=== PATIENT | female | born 1995 | race Caucasian/White ===

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

== ENCOUNTER 2017-02-06 14:27 | Emergency (ER) | payer MEDICAID, OTHER ==
--- NOTE | 2017-02-06 15:28 | ER Document Report ---
ED Medical Screen (RME) - General Chief Complaint: Abdominal Pain Stated Complaint: ABDOMINAL PAIN Notes: 21-year-old female patient complaining of lower abdominal pain and low back pain with nausea and vomiting for 3 days. She also has vaginal discharge. She seen in urgent care yesterday and diagnosed with a UTI and yeast vaginitis. . She had similar symptoms on the ER visit in October of this year, told she had liver disease. The AST was 103, ALT 209. She was later told she may have PCOS and they wanted to put her on control pills but this did not happen. At that time her symptoms lasted several weeks. I have greeted and performed a rapid initial assessment of this patient. A comprehensive ED assessment and evaluation of the patient, analysis of test results and completion of the medical decision making process will be conducted by additional ED providers. TRAVEL OUTSIDE OF THE [place] IN LAST 30 DAYS: No - Related Data Allergies/Adverse Reactions: Penicillins Allergy (Verified 02/06/17 15:25) Past Medical History Renal/ Medical History: Denies: Hx Peritoneal Dialysis - Immunizations Hx Diphtheria, Pertussis, Tetanus Vaccination: Yes Physical Exam - Vital signs Vitals: Temp Pulse Resp BP Pulse Ox 98.1 F 97 H 20 141/86 H 97 02/06/17 14:34 02/06/17 14:34 02/06/17 14:34 02/06/17 14:34 02/06/17 14:34 Course - Vital Signs Vital signs: Temp Pulse Resp BP Pulse Ox 98.1 F 97 H 20 141/86 H 97 02/06/17 14:34 02/06/17 14:34 02/06/17 14:34 02/06/17 14:34 02/06/17 14:34
[2017-02-06 16:36] LABS: ABSOLUTE MONOCYTES (AUTO) 0.9 10^3/uL (0.1-1.4); ABSOLUTE NEUT (AUTO) 8.2 10^3/uL (1.7-8.2); BASOPHILS % (AUTO) 0.3 % (0-2); EOSINOPHILS % (AUTO) 0.4 % (0-6); HEMOGLOBIN 13.8 g/dL (12.0-15.5); HGB HCT DIFFERENCE 0.4; LYMPHOCYTES % (AUTO) 18.1 % (13-45); MEAN CORPUSCULAR HEMOGLOBIN 27.7 pg (27.0-33.4); MEAN CORPUSCULAR HGB CONC 33.7 g/dL (32.0-36.0); MEAN CORPUSCULAR VOLUME 82 fl (80-97); MONOCYTES % (AUTO) 7.8 % (3-13); RED BLOOD COUNT 4.99 10^6/uL (3.72-5.28); RED CELL DISTRIBUTION WIDTH 13.6 % (11.5-14.0); SEGMENTED NEUTROPHILS % (AUTO) 73.4 % (42-78); WHITE BLOOD COUNT 11.2 10^3/uL (4.0-10.5)
[2017-02-06 16:47] LABS: APPEARANCE,URINE CLEAR; BILIRUBIN,URINE NEGATIVE (NEGATIVE); CALCIUM OXALATE CRYSTALS,URINE MODERATE /HPF; GLUCOSE, URINE NEGATIVE (NEGATIVE); KETONES,URINE NEGATIVE (NEGATIVE); LEUKOCYTE ESTERASE,URINE NEGATIVE (NEGATIVE); NITRITE,URINE POSITIVE (NEGATIVE); PROTEIN,URINE NEGATIVE (NEGATIVE); URINE SPECIFIC GRAVITY 1.023
[2017-02-06] MEDS ORDERED: IBUPROFEN 800 MG TABLET PO ONE (18:24)
--- NOTE | 2017-02-06 18:27 | ER Document Report ---
ED GI/ - General Chief Complaint: Abdominal Pain Stated Complaint: ABDOMINAL PAIN Mode of Arrival: Ambulatory Information source: Patient Notes: This is a 21-year-old female presents to the ER with three-day history of lower abdominal pain. She also has had nausea and intermittent vomiting but normal bowel movements. She states that she was seen at urgent care yesterday and diagnosed with a yeast infection and a UTI. She was prescribed Diflucan which she has not taken because she states it won't help. She was also prescribed an antibiotic which she has been taking. No fevers, chills. She does endorse white vaginal discharge for the past 2-3 days. No dysuria. TRAVEL OUTSIDE OF THE [place] IN LAST 30 DAYS: No - Related Data Allergies/Adverse Reactions: Penicillins Allergy (Verified 02/06/17 15:25) Past Medical History - General Information source: Patient - Social History Smoking Status: Current Every Day Smoker Frequency of alcohol use: Social Drug Abuse: None Family History: Reviewed & Not Pertinent Patient has suicidal ideation: No Patient has homicidal ideation: No Renal/ Medical History: Reports: Other - PCOS. Denies: Hx Peritoneal Dialysis - Immunizations Hx Diphtheria, Pertussis, Tetanus Vaccination: Yes Review of Systems - Review of Systems Constitutional: No symptoms reported. denies: Chills, Fever EENT: No symptoms reported Cardiovascular: No symptoms reported. denies: Chest pain Respiratory: No symptoms reported Gastrointestinal: See HPI, Abdominal pain, Vomiting. denies: Diarrhea, Constipation Genitourinary: See HPI. denies: Burning, Dysuria Female Genitourinary: See HPI, Last menstrual period - 01/14/17, Vaginal discharge Musculoskeletal: No symptoms reported Skin: No symptoms reported Hematologic/Lymphatic: No symptoms reported Neurological/Psychological: No symptoms reported Physical Exam - Vital signs Vitals: Temp Pulse Resp BP Pulse Ox 98.1 F 97 H 20 141/86 H 97 02/06/17 14:34 02/06/17 14:34 02/06/17 14:34 02/06/17 14:34 02/06/17 14:34 - Notes Notes: PHYSICAL EXAMINATION: GENERAL: Well-appearing, well-nourished and in no acute distress. HEAD: Atraumatic, normocephalic. EYES: Pupils equal round and reactive to light, extraocular movements intact, sclera anicteric, conjunctiva are normal. ENT: nares patent, oropharynx clear without exudates. Moist mucous membranes. NECK: Normal range of motion, supple without lymphadenopathy LUNGS: Breath sounds clear to auscultation bilaterally and equal. No wheezes rales or rhonchi. HEART: Regular rate and rhythm without murmurs ABDOMEN: Soft, diffuse mild lower abdominal TTP without guarding/rebound/ rigidity, normoactive bowel sounds. No masses appreciated. : No external lesions noted. Yellow discharge in vault. Mild CMT. No adnexal masses or focal TTP. EXTREMITIES: Normal range of motion, no pitting or edema. No cyanosis. NEUROLOGICAL: Cranial nerves grossly intact. No gross focal motor or sensory deficits noted PSYCH: Normal mood, normal affect. SKIN: Warm, Dry, normal turgor, no rashes or lesions noted. Course - Vital Signs Vital signs: Temp Pulse Resp BP Pulse Ox 98.5 F 79 16 136/77 H 98 02/06/17 20:40 02/06/17 20:40 02/06/17 20:40 02/06/17 20:40 02/06/17 20:40 - Laboratory Result Diagrams: 02/06/17 16:10 02/06/17 19:05 Laboratory results interpreted by me: 02/06/17 02/06/17 02/06/17 15:34 16:10 19:05 WBC 11.2 H Glucose 195 H AST 58 H ALT 128 H Urine Nitrite POSITIVE H Urine Urobilinogen 4.0 H Chlamydia DNA (PCR) 02/06/17 19:40 WBC Glucose AST ALT Urine Nitrite Urine Urobilinogen Chlamydia DNA (PCR) DETECTED H Discharge - Discharge Clinical Impression: Cervicitis UTI (urinary tract infection) Qualifiers: Urinary tract infection type: site unspecified Hematuria presence: without hematuria Qualified Code(s): N39.0 - Urinary tract infection, site not specified Condition: Stable Disposition: HOME, SELF-CARE Additional Instructions: URINARY TRACT INFECTION: Your evaluation indicates that you have a urinary tract infection. This is due to germs growing in the bladder. This is a common problem. This infection usually responds quickly to antibiotics. Your antibiotic should be taken exactly as prescribed. Drink plenty of fluids -- three to four quarts a day. Occasionally, a bladder anesthetic will be prescribed to help stop the feeling of urgency until the antibiotic has a chance to clear the infection. This may cause your urine to be dark orange. Certain urine infections require a culture. If the doctor obtained a culture, the results will be back in two days. You should call to see if a change in treatment is needed. A repeat urinalysis after you finish treatment is often recommended. The physician will let you know if further testing is required. Call the doctor if you develop fever, chills, flank pain, inability to urinate, or blood in the urine. Pelvic Inflammatory Disease You have been diagnosed as having pelvic inflammatory disease (PID). This is an infection of the fallopian tubes and surrounding areas of the pelvis. Symptoms are usually pelvic pain and discharge. The infection can do permanent damage to the tubes and ovaries. It should be taken very seriously. Treatment is antibiotics, which may be given by vein or by injection if the infection seems serious. It's important that you receive all recommended medication. Condoms help prevent spread of this infection to others. Because this infection is spread sexually, it's important that your sexual partner be checked before resuming sexual relations. If a culture shows gonorrhea or chlamydia organisms, the law requires that this be reported to the health department. Call the doctor or return at once if you develop increasing fever, rash, severe pelvic pain, vaginal bleeding (other than your period), or problems with your bladder or bowels. FOLLOW-UP CARE: If you have been referred to a physician for follow-up care, call the physician s office for an appointment as you were instructed or within the next two days. If you experience worsening or a significant change in your symptoms, notify the physician immediately or return to the Emergency Department at any time for re-evaluation. Prescriptions: Doxycycline Hyclate 100 mg PO BID #28 capsule Hydrocodone/Acetaminophen [Lortab 5-325 mg Tablet] 1 each PO Q6H PRN #12 tablet PRN Reason: For Pain Forms: Smoking Cessation Education, Return to Work Referrals: DOMI CARRANZA MD [Primary Care Provider] - Follow up in 1 week
[2017-02-06 19:32] LABS: ALANINE AMINOTRANSFERASE 128 U/L (5-35); ALBUMIN 4.4 g/dL (3.7-5.6); ALKALINE PHOSPHATASE 62 U/L (50-135); ANION GAP 19 (5-19); ASPARTATE AMINO TRANSFERASE 58 U/L (5-30); BILIRUBIN,DIRECT 0.3 mg/dL (0.0-0.4); BILIRUBIN,TOTAL 0.7 mg/dL (0.2-1.3); BLOOD UREA NITROGEN 8 mg/dL (7-20); CALCIUM 9.2 mg/dL (8.4-10.2); CARBON DIOXIDE 23 mmol/L (22-30); CHLORIDE 103 mmol/L (98-107); CREATININE RESULT 0.62 mg/dL (0.52-1.25); GLUCOSE 195 mg/dL (75-110); LIPASE 131.2 U/L (23-300); SODIUM 144.5 mmol/L (137-145)
[2017-02-06] MEDS ORDERED: LIDOCAINE 1% INJ-PF (10 MG/ML) 30 ML SDV INJ ONE (19:44)
[2017-02-06] MEDS ORDERED: HYDROCODONE/ACETAMINOPHEN 5-325 MG TABLET PO ONE (19:45)
[2017-02-06] MEDS ORDERED: AZITHROMYCIN 1 GM SUSP PACKET PO ONE (19:45)
[2017-02-06] MEDS ORDERED: CEFTRIAXONE INJ 250 MG VIAL IM ONE (20:05)
[2017-02-06 20:42] VITALS: BP 136/77
[2017-02-06 21:21] LABS: CHLAM PCR DETECTED (NOT DETECT)
== END 2017-02-06 20:37 | disposition home or self-care (01) ==
LOC: ER 14:27
DX: N72 Inflammatory disease of cervix uteri (principal); N39.0 Urinary tract infection, site not specified; R10.30 Lower abdominal pain, unspecified; R11.2 Nausea with vomiting, unspecified; F17.200 Nicotine dependence, unspecified, uncomplicated; Z88.0 Allergy status to penicillin
CPT/HCPCS: 99284; 96372; 36415; 87086; 87210; 83690; 85025; 81025; 80053; 81001; 87491; 87591; J3490 ×2; Q0144; J0696